=== PATIENT | female | born 1945 | race Caucasian/White ===

== ENCOUNTER 2017-02-03 19:22 | Emergency (ER) | payer OTHER, MEDICAID ==
[2017-02-03 19:34] VITALS: BP 171/92
== END 2017-02-03 20:22 | disposition left against medical advice (07) ==
LOC: ED 19:22
DX: Z53.21 Procedure and treatment not carried out due to patient leaving prior to being seen by health care provider (principal)

== ENCOUNTER 2017-02-04 07:31 | Emergency (ER) | payer OTHER, MEDICAID ==
[~2017-02-04] VITALS: Ht 149.9 cm; Wt 98.9 kg
[2017-02-04 10:14] VITALS: BP 163/76
== END 2017-02-04 10:14 | disposition home or self-care (01) ==
LOC: ED 07:31
DX: M25.512 Pain in left shoulder (principal); I10 Essential (primary) hypertension; M25.562 Pain in left knee; M79.642 Pain in left hand; M79.672 Pain in left foot; E11.9 Type 2 diabetes mellitus without complications; Z85.3 Personal history of malignant neoplasm of breast; Z90.10 Acquired absence of unspecified breast and nipple; Z79.899 Other long term (current) drug therapy
CPT/HCPCS: J1885

== ENCOUNTER 2018-10-02 08:17 | Emergency (ER) | payer OTHER, MEDICAID ==
[~2018-10-02] VITALS: Ht 149.9 cm; Wt 98.4 kg
[2018-10-02 08:19] VITALS: Ht 149.9 cm; Wt 98.4 kg
[2018-10-02 08:45] VITALS: BP 156/94
== END 2018-10-02 08:45 | disposition home or self-care (01) ==
LOC: ED 08:17
DX: J02.9 Acute pharyngitis, unspecified (principal); I11.0 Hypertensive heart disease with heart failure; E11.9 Type 2 diabetes mellitus without complications; E78.5 Hyperlipidemia, unspecified; Z85.3 Personal history of malignant neoplasm of breast; Z90.10 Acquired absence of unspecified breast and nipple

== ENCOUNTER 2020-04-18 10:55 | Emergency (ER) | payer OTHER ==
[~2020-04-18] VITALS: Ht 149.9 cm; Wt 98.0 kg
[2020-04-18 11:11] VITALS: Ht 149.9 cm; Wt 98.0 kg
[2020-04-18 12:51] LABS: BASOPHIL % 0.8 % (0-2); PLATELET COUNT 312 x10^3mcL (130-400)
[2020-04-18 12:54] LABS: RED CELL DISTRIBUTION WIDTH 15.6 % (11.5-14.5)
[2020-04-18 13:13] LABS: CALCIUM 8.2 mg/dL (8.5-10.1); CARBON DIOXIDE 27.7 mmol/L (21-32); CHLORIDE SERUM 102 mmol/L (98-107); CREATININE SERUM 0.7 mg/dL (0.6-1.0); GLUCOSE SERUM 171 mg/dL (74-106); POTASSIUM SERUM 3.3 mmol/L (3.5-5.1); SODIUM SERUM 138 mmol/L (136-145)
[2020-04-18 13:21] LABS: FREE T4 1.1 ng/dL (0.76-1.46); FREE THYROXINE INDEX 2.8 ug/dL (1.4-4.5); T4(THYROXINE) 8.7 ug/dL (4.7-13.3)
[2020-04-18 13:25] LABS: ALBUMIN 3.4 g/dL (3.4-5.0); ALKALINE PHOSPHATASE 146 U/L (46-116); AST/SGOT 6 U/L (15-37); TOTAL PROTEIN, SERUM 7.5 g/dL (6.4-8.2)
[2020-04-18 13:31] LABS: ERYTHROCYTE SED RATE 48 mm/hr (0-30)
[2020-04-18 13:47] LABS: ALT/SGPT 17 U/L (14-59); BILIRUBIN TOTAL 0.62 mg/dL (0.20-1.00); C REACTIVE PROTEIN 3.9 mg/dL (<=0.9)
[2020-04-18 13:53] LABS: T3 TOTAL 1.25 ng/mL
[2020-04-18 14:07] LABS: CK-MB 1.2 ng/mL (0-3.6)
[2020-04-18 16:00] VITALS: BP 135/64
== END 2020-04-18 16:00 | disposition home or self-care (01) ==
LOC: ED 10:55
PROVIDERS: Specialist
DX: R10.13 Epigastric pain (principal); I10 Essential (primary) hypertension; E11.9 Type 2 diabetes mellitus without complications; Z90.10 Acquired absence of unspecified breast and nipple
CPT/HCPCS: 36600; 84439; J1885; J3010; J7030; Q0092